=== PATIENT | male | born 1970 | race Caucasian/White ===

== ENCOUNTER 2022-07-02 04:26 | Emergency (ER) | payer OTHER, SELFPAY ==
[2022-07-02 04:27] VITALS: BP 195/112; PULSE 88; RESP 15; TEMP 36.2; O2SAT 99; BMI 37.9
--- NOTE | 2022-07-02 04:36 | EX.ED.DYSGE1 ---
HPI History of Present Illness Chief Complaint: Foreign Body Informant: patient Narrative Narrative: Patient states he feels like he has something stuck in his throat that he cannot clear out. He states that he has had nasal drainage his whole life. Its been increased over the last month or so. He deals with this all the time. He woke up this morning and felt that he had some drainage that stuck in his throat. He has tried to cough but he just cannot clear it out. He is not actually short of breath. He is not having trouble breathing. He is not having pain. He just feels that there is something stuck there and then it cannot come loose. He ate dinner about 10 or so hours ago. No problems after eating dinner. No history of fish bones or anything that got stuck in his throat. This seems like it is probably a area of thick drainage that is somewhat adherent and sticking in the posterior pharynx region. PFSH PFSH Allergy/AdvReac Type Severity Reaction Status Date / Time cat dander [cats] Allergy NEEDS Verified 07/02/22 04:30 FOLLOW-UP ragweed pollen Allergy NEEDS Verified 07/02/22 04:30 FOLLOW-UP ROS ROS ED Constitutional Constitutional ED: Denies chills, fever(s) or subjective ENT ENT ED: Reports other Details: See history of present illness. Cardiovascular Cardiovascular: Denies chest pain Respiratory/Chest Respiratory/Chest: Denies cough or dyspnea Gastrointestinal Gastrointestinal: Denies nausea or vomiting Musculoskeletal Musculoskeletal: Denies myalgias Integumentary Denies rash Neurologic Neurologic: Denies headache(s) Psychiatric Psychiatric: Denies anxiety Endocrine Endocrinology: Denies polydipsia or polyuria Hematologic/Lymphatic Hematologic/Lymphatic: Denies easy bleeding, easy bruising or lymphadenopathy Allergic/Immunologic Allergic/Immunologic ED: Denies urticaria EXAM Physical Exam Narrative Exam Narrative: Patient sitting in bed. Awake alert nontoxic. No acute distress. Carries on normal conversation. HEENT: Ears show no sign of infection. No sinus tenderness. He does have nasal congestion pretty significantly on both sides. He deals with this a lot. Posterior pharynx shows no exudate or asymmetry. His uvula is a bit larger than normal but that could just be from coughing. It is not red or inflamed. It is just a very subtle change. This certainly could be contributing to some of the symptoms. His voice is normal other than being somewhat nasal and he can handle secretions normally. Neck shows no stridor or lymphadenopathy Lungs are clear bilaterally. No wheezing. Takes good deep breaths without pain. Heart is regular without murmur gallop or rub. Abdomen is benign. Skin shows no erythema rash pallor or diaphoresis Extremities show no tenderness or pain with motion Const Vital Signs: 07/02/22 04:27 07/02/22 04:27 07/02/22 04:43 Temperature 97.2 F L Temperature Source Temporal Pulse Rate 88 83 Respiratory Rate 15 16 Respiratory Pattern Normal Blood Pressure 195/112 H 195/112 H Blood Pressure Mean 139 139 Pulse Ox 99 Oxygen Delivery Method Room Air MDM MDM MDM Narrative Medical decision making narrative: Patient was given a DuoNeb treatment. He states he did bring up a lot of drainage. He does feel better. But he still feels as though there is a little something stuck in the back of his throat. I am beginning to wonder if some of this might be his uvula. It is mildly enlarged. But is not inflamed. Tonsils look normal. His lungs are clear. He states he has had this for a long time. He does not think it is bacterial. He is not having fevers or chills. He has used steroids before that have helped. I offered a dose of Decadron here so we will try that and then he will go home. He has Mucinex at home that works well for him. Patient is having no symptoms of elevated blood pressure. He will need this rechecked in follow-up. Discharge Plan Triage Chief Complaint: Foreign Body ED Provider: Rick Johnson Dx/Rx/DC Orders Clinical Impression: Uvulitis Instructions: ED Uvulitis Primary Care Provider: Care Physician,No Primary Referrals: Reji Lennon MD [Med Staff - Embedded Processor] - 3-5 Days if not improving Care Physician,No Primary [Primary Care Provider] - Activity Restrictions/Additional Instructions: Follow up with your physician or Dr. Lennon as above. Your blood pressure was elevated today. That does not need acute treatment but does need recheck. Disposition Disposition: Home, Self Care
[2022-07-02 04:43] VITALS: PULSE 83; RESP 16
[2022-07-02] MEDS: Ipratropium/Albuterol Sulfate 3 ML AMPUL.NEB INHALATION (04:43)
[2022-07-02] MEDS: dexAMETHasone 4 MG Tablet 10 MG PO (06:23)
== END 2022-07-02 06:25 | disposition home or self-care (01) ==
PROVIDERS: Emergency Provider Emergency Medicine; Visit Provider Emergency Medicine
DX: K12.2 Cellulitis and abscess of mouth (principal)
CPT/HCPCS: 94640; 99252; 99283; G0463